=== PATIENT | male | born 1945 | race Caucasian/White ===

== ENCOUNTER 2023-01-16 19:47 | Inpatient (IN) ==
[2023-01-16 20:46] LABS: Urine Appearance Clear; Urine Bilirubin Negative (Negative); Urine Blood Negative (Negative); Urine Color Yellow; Urine Glucose Negative (Negative); Urine Ketones Negative (Negative); Urine Nitrite Negative (Negative); Urine Protein Negative (Negative); Urine Specific Gravity 1.009 (1.002-1.030); Urine Urobilinogen Negative (Negative)
[2023-01-16 20:51] LABS: Activated Partial Thrombo Time 34.3 seconds (26.0-38.0); INR 1.41 (0.88-1.18)
[2023-01-16 20:54] LABS: ABS Lymphocytes 0.1 10^3/uL (1.0-4.8); ABS Monocytes 0.1 10^3/uL (0.0-1.1); ABS Nucleated RBC 0.02 10^3/ul; Eosinophil % 3.6 %; Hematocrit 24.4 % (38-53); Hemoglobin 8.7 g/dL (13.2-16.3); Lymphocyte % 30.2 %; Mean Corpuscular Hemoglobin 34.8 pg (27-33); Mean Corpuscular Hgb Conc 35.5 g/dL (31-36); Mean Corpuscular Volume 98.1 fL (80-97); Mean Platelet Volume 6.4 fL (7.5-11.2); Nucleated Red Blood Cells % 4.9 /100 WBC (0.0-0.4); Platelet Count 369 10^3/uL (150-450); Red Blood Count 2.49 10^6/uL (4.06-5.63); Red Cell Distribution Width 23.6 % (12-17); White Blood Count 0.4 10^3/uL (3.6-10.2)
[2023-01-16 20:59] LABS: Albumin 3.1 g/dL (3.2-5.2); Albumin/Globulin Ratio 1.5 (1-3); C Reactive Protein 95.72 mg/L (<8.01); Calcium 8.1 mg/dL (8.6-10.3); Creatinine, Serum 0.39 mg/dL (0.67-1.17); Globulin 2.1 g/dL (2-4); Total Bilirubin 2.2 mg/dL (0.2-1.0); Total Protein 5.2 g/dL (6.4-8.9); eGFR CKD-EPI 112.5 (>60)
[2023-01-16 21:38] LABS: ABS Neutrophils 0.1 10^3/uL (1.5-7.6)
[2023-01-16 22:04] LABS: High Sensitivity Troponin 1 Hr 7 pg/mL (<20)
[2023-01-16] MEDS ORDERED: Cefepime 2 GM in Dextrose 2 GM/50 ML BAG IV ONE (22:13)
[2023-01-17] MEDS ORDERED: Polyethylene Glycol 3350 17 GM PACKET PO PRN (00:08)
[2023-01-17] MEDS ORDERED: Al Hydrox/Mg Hydrox/Simet LIQ 30 ML UDC PO PRN (00:08)
[2023-01-17] MEDS: Enoxaparin 40 MG/0.4 ML SYR SUBCUT SCH ×2 (01:29→21:19)
[2023-01-17 06:42] LABS: ABS Lymphocytes 0.1 10^3/uL (1.0-4.8); ABS Monocytes 0.1 10^3/uL (0.0-1.1); ABS Neutrophils 0.1 10^3/uL (1.5-7.6); Eosinophil % 4.6 %; Hematocrit 23.8 % (38-53); Hemoglobin 8.1 g/dL (13.2-16.3); Lymphocyte % 33.1 %; Mean Corpuscular Hemoglobin 33.2 pg (27-33); Mean Corpuscular Hgb Conc 34.2 g/dL (31-36); Mean Corpuscular Volume 97.3 fL (80-97); Mean Platelet Volume 6.7 fL (7.5-11.2); Platelet Count 342 10^3/uL (150-450); Red Blood Count 2.45 10^6/uL (4.06-5.63); Red Cell Distribution Width 23.5 % (12-17); White Blood Count 0.3 10^3/uL (3.6-10.2)
[2023-01-17] MEDS: Cefepime 2 GM in Dextrose 2 GM/50 ML BAG IV SCH ×2 (07:31→21:20)
[2023-01-17 07:50] LABS: Calcium 7.9 mg/dL (8.6-10.3); Creatinine, Serum 0.34 mg/dL (0.67-1.17); Potassium 3.6 mmol/L (3.5-5.0); eGFR CKD-EPI 117.3 (>60)
[2023-01-17] MEDS ORDERED: Cefepime 2 GM in Dextrose 2 GM/50 ML BAG IV SCH (08:00)
[2023-01-17] MEDS ORDERED: Filgrastim* 480 MCG VIAL (AUTOSUB = ZARXIO*) SUBCUT SCH (10:00)
[2023-01-18 06:41] LABS: Hematocrit 22.7 % (38-53); Mean Corpuscular Hemoglobin 34.9 pg (27-33); Mean Corpuscular Hgb Conc 35.4 g/dL (31-36); Mean Corpuscular Volume 98.6 fL (80-97); Mean Platelet Volume 6.5 fL (7.5-11.2); Platelet Count 343 10^3/uL (150-450); Red Cell Distribution Width 23.3 % (12-17); White Blood Count 0.4 10^3/uL (3.6-10.2)
[2023-01-18 06:49] LABS: Albumin 2.6 g/dL (3.2-5.2); Albumin/Globulin Ratio 1.4 (1-3); Calcium 7.8 mg/dL (8.6-10.3); Creatinine, Serum 0.32 mg/dL (0.67-1.17); Globulin 1.8 g/dL (2-4); Magnesium 1.8 mg/dL (1.9-2.7); Potassium 3.3 mmol/L (3.5-5.0); Total Bilirubin 1.2 mg/dL (0.2-1.0); Total Protein 4.4 g/dL (6.4-8.9); eGFR CKD-EPI 119.5 (>60)
[2023-01-18 07:35] LABS: ABS Lymphocytes 0.1 10^3/uL (1.0-4.8); ABS Monocytes 0.1 10^3/uL (0.0-1.1); ABS Neutrophils 0.2 10^3/uL (1.5-7.6); ABS Nucleated RBC 0.01 10^3/ul; Eosinophil % 6.7 %; Nucleated Red Blood Cells % 1.4 /100 WBC (0.0-0.4)
[2023-01-18] MEDS ORDERED: Magnesium Sulfate 2 gm BAG 2 GM/50 ML BAG IVPB ONE (07:43)
[2023-01-18] MEDS ORDERED: Potassium Chlor 20 meq TAB.ER PO ONE (07:43)
[2023-01-18 10:23] VITALS: BP 109/66
[2023-01-18] MEDS: Cefepime 2 GM in Dextrose 2 GM/50 ML BAG IV SCH (10:30)
== END 2023-01-18 14:30 | disposition home or self-care (01) | DRG 809 ==
LOC: EDHOLD 19:47 → ED 19:47 → SUATTDRO 22:23 → MED 01-17 01:02
PROVIDERS: ADMIT Internal Medicine; ATTEND Internal Medicine

== ENCOUNTER 2023-02-16 19:12 | Observation (INO) ==
[2023-02-16 23:20] LABS: Hematocrit 25.2 % (38-53); Hemoglobin 8.8 g/dL (13.2-16.3); Mean Corpuscular Hgb Conc 35.1 g/dL (31-36); Mean Corpuscular Volume 96.9 fL (80-97); Mean Platelet Volume 6.4 fL (7.5-11.2); Platelet Count 536 10^3/uL (150-450); Red Cell Distribution Width 19.3 % (12-17); White Blood Count 1.9 10^3/uL (3.6-10.2)
[2023-02-16 23:36] LABS: ALT 14 U/L (7-52); Albumin 3.6 g/dL (3.2-5.2); Albumin/Globulin Ratio 1.4 (1-3); Alkaline Phosphatase 80 U/L (35-149); Blood Urea Nitrogen 13 mg/dL (6-24); C Reactive Protein 98.57 mg/L (<8.01); CO2 Carbon Dioxide 27 mmol/L (22-32); Calcium 9.1 mg/dL (8.6-10.3); Chloride 98 mmol/L (101-111); Creatinine, Serum 0.55 mg/dL (0.67-1.17); Globulin 2.5 g/dL (2-4); Glucose 99 mg/dL (70-100); Sodium 130 mmol/L (135-145); Total Protein 6.1 g/dL (6.4-8.9); eGFR CKD-EPI 101.4 (>60)
[2023-02-16 23:40] LABS: Anion Gap 5 mmol/L (2-16)
[2023-02-16 23:53] LABS: ABS Eosinophils 0.1 10^3/uL (0.0-0.5); ABS Lymphocytes 0.2 10^3/uL (1.0-4.8); ABS Monocytes 1.3 10^3/uL (0.0-1.1); ABS Nucleated RBC 0.01 10^3/ul; Eosinophil % 5.1 %; Lymphocyte % 11.2 %; Nucleated Red Blood Cells % 0.5 /100 WBC (0.0-0.4)
[2023-02-17] MEDS ORDERED: Iodixanol (CONTRAST) 320 MG/ML 100 ML SDV IV ONE (00:19)
[2023-02-17] MEDS ORDERED: Clindamycin 600 MG/D5W BAG 600 MG/50 ML BAG IV ONE (00:20)
[2023-02-17 00:39] LABS: ABS Neutrophils 0.3 10^3/uL (1.5-7.6)
[2023-02-17 01:15] LABS: Potassium Redraw 3.8 mmol/L (3.5-5.0)
[2023-02-17] MEDS: Enoxaparin 40 MG/0.4 ML SYR SUBCUT SCH (03:31)
[2023-02-17] MEDS ORDERED: Piperacillin/Tazobac ADVAN 3.375 GM in NS 0.9% 100 ml BAG 100 ML IV ONE (04:06)
[2023-02-17] MEDS ORDERED: Zosyn per Pharmacy NOTE FOLLOW UP PRN (05:59)
[2023-02-17 06:08] LABS: Hematocrit 26.4 % (38-53); Hemoglobin 9.2 g/dL (13.2-16.3); Mean Corpuscular Hemoglobin 33.7 pg (27-33); Mean Corpuscular Hgb Conc 34.9 g/dL (31-36); Mean Corpuscular Volume 96.7 fL (80-97); Mean Platelet Volume 6.4 fL (7.5-11.2); Platelet Count 464 10^3/uL (150-450); Red Blood Count 2.73 10^6/uL (4.06-5.63); White Blood Count 1.6 10^3/uL (3.6-10.2)
[2023-02-17 06:20] LABS: Calcium 8.6 mg/dL (8.6-10.3); Creatinine, Serum 0.58 mg/dL (0.67-1.17); Magnesium 2.2 mg/dL (1.9-2.7); eGFR CKD-EPI 99.8 (>60)
[2023-02-17 06:57] LABS: ABS Eosinophils 0.1 10^3/uL (0.0-0.5); ABS Lymphocytes 0.2 10^3/uL (1.0-4.8); ABS Monocytes 1.1 10^3/uL (0.0-1.1); ABS Neutrophils 0.3 10^3/uL (1.5-7.6); Eosinophil % 4.6 %; Lymphocyte % 11.2 %; Nucleated Red Blood Cells % 0.2 /100 WBC (0.0-0.4)
[2023-02-17] MEDS: ZOSYN 3.375 GM Q8H per EXTENDED INFUSION IV SCH ×2 (08:24→18:01)
[2023-02-17] MEDS: Multivitamins/Minerals TAB PO SCH (08:24)
[2023-02-17] MEDS ORDERED: VEMURAFENIB 240 MG PO SCH (09:00)
[2023-02-18] MEDS: ZOSYN 3.375 GM Q8H per EXTENDED INFUSION IV SCH ×3 (01:11→17:06)
[2023-02-18 05:41] LABS: Hematocrit 23.8 % (38-53); Hemoglobin 8.5 g/dL (13.2-16.3); Mean Corpuscular Hemoglobin 34.3 pg (27-33); Mean Corpuscular Hgb Conc 35.7 g/dL (31-36); Mean Corpuscular Volume 96.2 fL (80-97); Mean Platelet Volume 6.3 fL (7.5-11.2); Platelet Count 402 10^3/uL (150-450); Red Blood Count 2.48 10^6/uL (4.06-5.63); White Blood Count 1.6 10^3/uL (3.6-10.2)
[2023-02-18 05:59] LABS: Calcium 8.5 mg/dL (8.6-10.3); Creatinine, Serum 0.65 mg/dL (0.67-1.17); eGFR CKD-EPI 96.4 (>60)
[2023-02-18 06:12] LABS: ABS Eosinophils 0.1 10^3/uL (0.0-0.5); ABS Lymphocytes 0.1 10^3/uL (1.0-4.8); ABS Monocytes 0.7 10^3/uL (0.0-1.1); ABS Neutrophils 0.7 10^3/uL (1.5-7.6); Nucleated Red Blood Cells % 0.1 /100 WBC (0.0-0.4)
[2023-02-18] MEDS: Enoxaparin 40 MG/0.4 ML SYR SUBCUT SCH (09:40)
[2023-02-18] MEDS: Multivitamins/Minerals TAB PO SCH (09:40)
[2023-02-18 13:51] LABS: Corrected Retic Count 0.8 % (0.5-1.5); Hematocrit for Retic CNT 25.7 % (38-53); Immature Retic Fraction 0.41; RBC Retic Count 2.68 10^6/ul (4.06-5.63)
[2023-02-18 14:56] LABS: Erythrocyte Sed Rate 70 mm/Hr (0-19)
[2023-02-18 15:16] LABS: Ferritin 718.4 ng/mL (24-336)
[2023-02-19] MEDS: ZOSYN 3.375 GM Q8H per EXTENDED INFUSION IV SCH ×2 (00:47→09:30)
[2023-02-19 06:30] LABS: Mean Corpuscular Hemoglobin 33.7 pg (27-33); Mean Corpuscular Hgb Conc 34.6 g/dL (31-36); Mean Corpuscular Volume 97.3 fL (80-97); Mean Platelet Volume 6.7 fL (7.5-11.2); Platelet Count 400 10^3/uL (150-450); Red Blood Count 2.67 10^6/uL (4.06-5.63); Red Cell Distribution Width 18.7 % (12-17); White Blood Count 5.8 10^3/uL (3.6-10.2)
[2023-02-19 08:32] LABS: Anisocytosis 2+; Tear Drop Cells 1+
[2023-02-19 08:33] LABS: ABS Eosinophils 0.1 10^3/uL (0.0-0.5); ABS Lymphocytes 0.2 10^3/uL (1.0-4.8); ABS Monocytes 0.8 10^3/uL (0.0-1.1); ABS Neutrophils 4.6 10^3/uL (1.5-7.6); ABS Nucleated RBC 0.01 10^3/ul; Lymphocyte % 2.8 %; Nucleated Red Blood Cells % 0.2 /100 WBC (0.0-0.4)
[2023-02-19] MEDS: Enoxaparin 40 MG/0.4 ML SYR SUBCUT SCH (09:29)
[2023-02-19] MEDS: Multivitamins/Minerals TAB PO SCH (09:30)
[2023-02-19 14:44] VITALS: BP 128/71
[2023-02-20 14:10] LABS: Immunoglobulin A 62 mg/dL (61 - 356); Immunoglobulin G 612 mg/dL (767 - 1590); Immunoglobulin M 21 mg/dL (37 - 286)
== END 2023-02-19 15:06 | disposition home or self-care (01) ==
LOC: ED 19:12 → EDHOLD 19:12 → SUATTDRO 02-17 02:55 → MEDTELE 02-17 03:42
PROVIDERS: ADMIT Hospitalist; ATTEND Internal Medicine